=== PATIENT | female | born 1990 | race Caucasian/White ===

== ENCOUNTER 2018-02-19 17:31 | Emergency (ER) | payer OTHER ==
[~2018-02-19 17:31] MED LIST: ALB18R INH; FERR15DR19 PO; PANT40TA65 PO; TOPI-119 PO
[2018-02-19 17:36] VITALS: BP 141/107
[2018-02-19] MEDS ORDERED: DIPHTH/TETANUS/ACEL. PERTUSSIS IM ONLY ONE (17:50)
--- NOTE | 2018-02-19 18:07 | ER Report ---
History and Physical Time Seen By MD: 17:47 Hx. of Stated Complaint: BIT ON CHIN BY NEIGHBORS DOG, DOG IS VACCINATED AGAINST RABIES HPI/ROS Chief Complaint: "bit by dog" HPI: 27-year-old was bit by a dog this evening. States her neighbors dog got into her fenced-in front yard and when she went to grab his collar he bit her on the chin. States she knows the owners of the dog and the dog is up-to-date with his rabies vaccination. Reports four cuts to her chin. Reports minimal pain. No treatments tired. Tetanus needs update. ROS: Constitutional: denies fevers, chills, or night sweats HEENT: denies cough or congestion Respiratory: denies shortness of breath, denies difficulty breathing CV: denies chest pain GI: denies nausea or vomiting, denies constipation or diarrhea : denies changes in urination Integumentary: reports four lacerations to the chin, denies rashes Allergies: Coded Allergies: nut - unspecified (Verified Allergy, Severe, tonya, 02/19/18) Home Meds Active Scripts Amoxicillin/Pot Clav 875-125 Mg Tab (AUGMENTIN 875-125 TABLET) 1 Each Tablet, 1 TAB PO Q12H for 10 Days, #18 TAB Prov:PHILLIP DIAZ [employer] 02/19/18 Reported Medications Albuterol Sulfate (VENTOLIN HFA) 18 Gm Inh, 1-2 PUFF INH 3-4XD Y for SHORTNESS OF BREATH, INH 03/08/17 Ferrous Sulfate (SAIDA-IRON) 15 Mg/1 Ml Drops, 325 MG PO DAILY 03/08/17 Topiramate (TOPAMAX) 25 Mg Tablet, 25 MG PO BID 03/08/17 Discontinued Scripts Pantoprazole Sodium (PANTOPRAZOLE SODIUM) 40 Mg Tablet.dr, 40 MG PO QDAY, #30 TAB.SR 3 Refills Prov:MARILUZ LABOY MD 03/14/17 Past Medical/Surgical History migraine Hx Smoking: No Smoking Status: Never Smoker Exposure to Second Hand Smoke?: No Hx Substance Use Disorder: No Hx Alcohol Use: Yes Constitutional Vital Sign - Last 24 Hours 02/19/18 17:36 Temp 98.3 Pulse 92 Resp 16 B/P (MAP) 141/107 Pulse Ox 95 Physical Exam Physical Examination: General: 27-year-old female in no acute distress HEENT: normocephalic, chin with four, superficial lacerations less than 0.5 cm Respiratory: Bl equal respiratory excursion, CTA BL CV: Clear S1 S2, no murmur Musculoskeletal: moves all extremities Differential Diagnoses: dog bit, laceration, tetanus, rabies Medical Decision Making ED Course/Re-evaluation ED Course 27-year-old female presents to the emergency department after her neighbors dog bit her face. She states she does know the senior lead developer of the dog and the dog was up- to-date with his rabies vaccination. She would like a Tdap shot today. Reports minimal pain. The lacerations were cleaned and two interrupting sutures were placed in the medial lacerations (one in each laceration). The patient will be sent home on antibiotic therapy and encouraged to see her primary care provier in 5-7 days to have the stitches removed. She has further been encouraged to return to the emergency department if her condition worsens. Procedure Four lacerations to the chin each measuring less than 0.5 cm. One, interrupting , 6-0, Prolene suture placed in the right medial laceration and one, 6-0, Prolene, interrupting suture placed on the left medial suture. simple repair. Decision to Disposition Date: Feb 19, 2018 Decision to Disposition Time: 18:42 Depart Departure Latest Vital Signs Vital Signs Date Time Temp Pulse Resp B/P (MAP) Pulse Ox O2 Delivery O2 Flow Rate FiO2 02/19/18 17:36 98.3 92 16 141/107 95 Impression: Primary Impression: Dog bite of chin Condition: Improved Disposition: HOME OR SELF-CARE Referrals: NIMESH MCCONNELL PA-C (PCP) New Scripts Amoxicillin/Pot Clav 875-125 Mg Tab (AUGMENTIN 875-125 TABLET) 1 Each Tablet 1 TAB PO Q12H for 10 Days, #18 TAB Prov: PHILLIP DIAZ 02/19/18 Patient Instructions: Laceration (ED) Additional Instructions: Keep stitches clean and dry for 48 hours and then shower as usual. Have the stitches removed by your primary care provider in 5 to 7 days. Take antibiotics, once in the morning and once at night for 10 days. Use sunscreen to prevent scaring. Return to the emergency department if your condition worsens. Problem Qualifiers Primary Impression: Dog bite of chin Encounter type: initial encounter Qualified Codes: S01.85XA - Open bite of other part of head, initial encounter; W54.0XXA - Bitten by dog, initial encounter PHILLIP DIAZ Feb 19, 2018 18:07
[2018-02-19] MEDS ORDERED: AMOX/CLAV 875 MG TAB PO ONE (18:35)
[2018-02-19] MEDS ORDERED: AMOX-559 PO (18:46)
== END 2018-02-19 18:56 | disposition home or self-care (01) ==
LOC: ER 17:41
DX: S01.81XA Laceration without foreign body of other part of head, initial encounter (principal); W54.0XXA Bitten by dog, initial encounter; Y92.007 Garden or yard of unspecified non-institutional (private) residence as the place of occurrence of the external cause; Y99.8 Other external cause status; Z23 Encounter for immunization
CPT/HCPCS: 90715